=== PATIENT | female | born 1955 | race African-American/Black ===

== ENCOUNTER 2017-04-20 15:11 | Emergency (ER) | payer MEDICARE, MEDICAID ==
[~2017-04-20] VITALS: Ht 162.6 cm; Wt 81.6 kg
[2017-04-20 15:34] VITALS: BP 112/46
[2017-06-02] MEDS ORDERED: LEVE750T15 PO (11:25)
[2017-06-02] MEDS ORDERED: LORA-622 PO (11:25)
[2017-06-02] MEDS ORDERED: LEVO50TA7 PO (11:25)
[2017-06-02] MEDS ORDERED: DEXL60CA3 PO (11:25)
[2017-06-02] MEDS ORDERED: MELO1TAB73 PO (11:25)
[2017-06-02] MEDS ORDERED: FOLI1TAB6 PO (11:25)
[2017-06-02] MEDS ORDERED: FERR-20 PO (11:25)
[2017-06-02] MEDS ORDERED: HYDR-4683 PO (11:25)
[2017-06-02] MEDS ORDERED: PRE5T OR (11:25)
[2017-06-02] MEDS ORDERED: METH2.5T3 PO (11:25)
== END 2017-04-20 17:42 | disposition home or self-care (01) ==
LOC: ER 15:15
DX: M19.90 Unspecified osteoarthritis, unspecified site (principal); D86.9 Sarcoidosis, unspecified; Z76.0 Encounter for issue of repeat prescription

== ENCOUNTER → 2017-06-02 | Outpatient (CLI) | payer MEDICARE, MEDICAID ==
[~2017-06-02] MED LIST: DEXL60CA3 PO; FERR-20 PO; FOLI1TAB6 PO; HYDR-4683 PO; LEVE750T15 PO; LEVO50TA7 PO; LORA-622 PO; MELO1TAB73 PO; METH2.5T3 PO; PRE5T OR
[2017-06-02 11:42] LABS: Hemoglobin 12.4 g/dL (12.2-16.2); White Blood Cell 4.2 10^3/uL (4.4-10.8)
[2017-06-02 11:44] LABS: Hematocrit 37.7 % (36.0-46.0); Mean Corpuscular Hemoglobin 34.2 pg (28.0-32.0); Mean Corpuscular Hgb Conc. 32.9 g/dL (32.0-36.0); Platelet Count (auto) 178 10^3/uL (140-450); Red Blood Cells 3.62 10^6/uL (4.0-5.20); Red Cell Distribution Width 13.7 % (11.8-14.3)
[2017-06-02 11:52] LABS: Band Neutrophils % (manual) 0; Basophils % (manual) 0 (0.0-2.0); Eosinophils % (manual) 0 (0-7); Metamyelocytes % 0
[2017-06-02 11:53] LABS: Blast Cells 0; Myelocytes % 0; Promyelocytes % 0; Reactive Lymphocytes 0
[2017-06-02 11:55] LABS: INR 1.02 (0.9-1.15); Prothrombin Time 11.1 sec (9.37-12.3)
[2017-06-02 12:28] LABS: Lymphocytes % (manual) 59 (10.0-50.0); Monocytes % (manual) 7 (0-12)
== END | disposition home or self-care (01) ==
LOC: LAB 11:30
PROVIDERS: ATTEND Internal Medicine Gastroenterology
DX: Z01.812 Encounter for preprocedural laboratory examination (principal); R79.89 Other specified abnormal findings of blood chemistry
CPT/HCPCS: 36415; 85007; 85027; 85610

== ENCOUNTER 2017-06-05 08:41 | Day surgery (SDC) | payer MEDICARE, MEDICAID ==
[~2017-06-05] VITALS: Ht 162.6 cm; Wt 88.5 kg
[2017-06-05] MEDS ORDERED: SODIUM CHLORIDE LOCK 10 ML ONE (09:02)
[2017-06-05] MEDS ORDERED: diphenhdrAMINE HCL 50 MG/1 ML VL ONE (09:03)
[2017-06-05] MEDS: fentaNYL CITRATE 100 MCG/2 ML VL ONE ×3 (09:38→09:47)
[2017-06-05] MEDS: MIDAZOLAM HCL 5 MG/ML-1ML VIAL ONE ×3 (09:38→09:47)
[2017-06-05 10:50] VITALS: BP 110/63
== END 2017-06-05 10:50 | disposition home or self-care (01) ==
LOC: GI 08:41
PROVIDERS: ATTEND Internal Medicine Gastroenterology
DX: Z12.11 Encounter for screening for malignant neoplasm of colon (principal); D12.2 Benign neoplasm of ascending colon; D12.3 Benign neoplasm of transverse colon; D12.5 Benign neoplasm of sigmoid colon; K57.30 Diverticulosis of large intestine without perforation or abscess without bleeding; K64.8 Other hemorrhoids; Z88.1 Allergy status to other antibiotic agents; Z88.2 Allergy status to sulfonamides; E66.9 Obesity, unspecified; Z68.33 Body mass index [BMI] 33.0-33.9, adult; R56.9 Unspecified convulsions; Z90.710 Acquired absence of both cervix and uterus; M06.9 Rheumatoid arthritis, unspecified; D64.9 Anemia, unspecified; Z80.0 Family history of malignant neoplasm of digestive organs
CPT/HCPCS: 45380; J1200; J2250; J3010; J7030; 99152

== ENCOUNTER → 2017-08-08 | Outpatient (CLI) | payer MEDICARE, MEDICAID ==
[2017-08-08 10:56] LABS: Basophils # (auto) 0 uL; Basophils % (auto) 0.8 % (0.0-2.0); Eosinophils # (auto) 0 uL; Eosinophils % (auto) 0.6 % (0.0-7.0); Hematocrit 37.2 % (36.0-46.0); Hemoglobin 12.5 g/dL (12.2-16.2); Lymphocytes # (auto) 1.6 uL; Lymphocytes % (auto) 35.1 % (10.0-50.0); Mean Corpuscular Hemoglobin 33.7 pg (28.0-32.0); Mean Corpuscular Hgb Conc. 33.6 g/dL (32.0-36.0); Mean Corpuscular Volume 100.2 fL (80.0-100.0); Monocytes # (auto) 0.5 uL; Monocytes % (auto) 10.7 % (0.0-12.0); Neutrophils # (auto) 2.4 uL; Neutrophils % (auto) 52.8 % (37.0-80.0); Nucleated Red Blood Cells % 0.1 %; Platelet Count (auto) 216 10^3/uL (140-450); Red Blood Cells 3.72 10^6/uL (4.0-5.20); Red Cell Distribution Width 13.9 % (11.8-14.3); White Blood Cell 4.6 10^3/uL (4.4-10.8)
[2017-08-08 10:59] LABS: Urine Bacteria NONE SEEN /hpf (None Seen); Urine Blood Negative /uL (Negative); Urine Specific Gravity 1.006 (1.001-1.035); Urine WBC 2 /hpf (0 - 5)
[2017-08-08 13:28] LABS: Albumin 4.1 g/dL (3.4-5.0); BUN/Creatinine Ratio 5.3; Bilirubin, Total 0.5 mg/dL (0.2-1.0); Calcium 9.3 mg/dL (8.5-10.1); Potassium 3.5 mmol/L (3.5-5.1); Total Protein 8.3 g/dL (6.4-8.2)
== END | disposition home or self-care (01) ==
LOC: LAB 10:10
PROVIDERS: ATTEND Internal Medicine
DX: Z12.11 Encounter for screening for malignant neoplasm of colon (principal); M06.9 Rheumatoid arthritis, unspecified; E03.9 Hypothyroidism, unspecified
CPT/HCPCS: 36415; 80053; 80061; 81001; 82550; 84443; 85025; 85652

== ENCOUNTER → 2017-11-16 | Outpatient (CLI) | payer MEDICARE, MEDICAID ==
[2017-11-16 11:56] LABS: Urine Blood Negative /uL (Negative); Urine Specific Gravity 1.005 (1.001-1.035)
== END | disposition home or self-care (01) ==
LOC: LAB 11:05
PROVIDERS: ATTEND Internal Medicine
DX: D86.0 Sarcoidosis of lung (principal); E03.9 Hypothyroidism, unspecified; R56.9 Unspecified convulsions
CPT/HCPCS: 36415; 81003; 84443; 85652